=== PATIENT | male | born 1975 | race Caucasian/White ===

== ENCOUNTER 2021-06-03 10:56 | Emergency (ER) | payer MEDICAID, SELFPAY ==
[2021-06-03 10:57] VITALS: BP 138/79; PULSE 98; RESP 18; TEMP 36.6; O2SAT 99; BMI 34.0
--- NOTE | 2021-06-03 11:05 | EDS_ITS ---
HPI History of Present Illness Chief Complaint: Abscess Informant: patient Onset/Context/Timing Onset: Days Context: Gradual Onset Current Severity: Moderate Maximum Severity: Moderate Narrative Narrative: Patient presents secondary to abscess to the left forearm. He states he first noted a pimple-like lesion there 3 or 4 days ago. It is grown in size and become more painful. He has erythematous streaks up to the armpit. He has had subjective fever and chills. PFSH PFSH Medical History no medical history no medical history Home Medications cephalexin 500 mg PO Q6 #40 cap 06/03/21 [Rx Last Taken Unknown] hydrocodone-acetaminophen 1 tab PO Q6H PRN 3 Days #10 tab 06/03/21 [Rx Last Taken Unknown] sulfamethoxazole-trimethoprim [Bactrim DS] 1 tab PO BID #20 tab 06/03/21 [Rx Last Taken Unknown] Allergy/AdvReac Type Severity Reaction Status Date / Time No Known Allergies Allergy Verified 06/03/21 10:58 Surgical History no surgical history Social History (Updated 06/03/21 @ 11:[address] Rebecca Duncan MD) Smoking Status: Light Smoker (<10/day) [facility] ED Constitutional Constitutional ED: Reports chills, fever(s) and subjective Eyes Eyes: Denies change in vision ENT ENT ED: Denies sore throat Cardiovascular Cardiovascular: Denies chest pain Respiratory/Chest Respiratory/Chest: Denies cough or dyspnea Gastrointestinal Gastrointestinal: Denies abdominal pain, diarrhea, nausea or vomiting Genitourinary Genitourinary ED: Denies dysuria Musculoskeletal Musculoskeletal: Denies back pain Integumentary Reports abscess; Denies rash Neurologic Neurologic: Denies headache(s), paresthesias or weakness Allergic/Immunologic Allergic/Immunologic ED: Denies urticaria EXAM Physical Exam Const Vital Signs: 06/03/21 10:57 06/03/21 12:04 Temperature 98 F 97.7 F L Temperature Source Temporal Temporal Pulse Rate 98 85 Respiratory Rate 18 20 H Blood Pressure 138/79 H 123/90 H Blood Pressure Mean 98 101 Pulse Ox 99 98 Oxygen Delivery Method Room Air Room Air Positive well nourished and well developed General Appearance ED: well developed HEENT Reports moist mucous membranes Eyes PERRL and EOMs intact bilaterally Neck supple Chest Wall inspection of chest normal and palpation of chest normal Resp normal respiratory effort and clear to auscultation bilaterally Cardio regular rate and regular rhythm GI non-tender Palpation: soft Extremity Extremity Narrative: Cutaneous abscess to the left forearm measuring approximately 4 cm in total diameter. No fluctuance noted at this time. Scabbed lesion present as if it has recently drained. Lymphangitic streaking noted up to the axilla. Palpable, painful lymph nodes noted in the axilla. Neuro oriented x3 Sensorium / Orientation: alert Psych mental status grossly normal MDM MDM MDM Narrative Medical decision making narrative: Lab work and blood cultures ordered. Patient given a dose of IV vancomycin. Patient consented for I&D. Lab Data Labs: Laboratory Results - last 24 hr 06/03/21 06/03/21 11:15 11:15 WBC 9.0 RBC 5.09 Hgb 16.7 H Hct 48.7 MCV 95.7 H MCH 32.8 H MCHC 34.3 RDW Std Deviation 45.7 H RDW Coeff of Jj 12.8 Plt Count 135 L MPV 11.6 Immature Gran % (Auto) 0.300 Neut % (Auto) 72.5 H Lymph % (Auto) 19.4 [place] % (Auto) 6.7 Eos % (Auto) 0.7 Baso % (Auto) 0.4 Absolute Neuts (auto) 6.5 Absolute Lymphs (auto) 1.75 Nucleated RBC % 0 Sodium 140 Potassium 3.6 Chloride 109 H Carbon Dioxide 29.0 Anion Gap 2 L BUN 12 Creatinine 0.93 Estim Creat Clear Calc 109.78 Est GFR (MDRD) Af Amer 111 Est GFR (MDRD) Non-Af 92 BUN/Creatinine Ratio 12.9 Glucose 139 H Calcium 8.8 Treatment and Re-Evaluation Comments:: I&D performed. Please see procedure note. Patient will be given [place], Bactrim, Keflex. Patient to follow-up with PCP for wound check within the next 5 days. Return instructions provided. Procedures Other Procedures Procedure(s): I&D left forearm abscess: Let applied to the wound topically. This was followed by 3 cc 1% lidocaine locally. 1 cm incision with #11 blade made. Return of blood and pus. Wound cleansed and irrigated. Topical antibiotic ointment placed along with dressing. Patient tolerated procedure well. Discharge Plan Triage Chief Complaint: Abscess ED Provider: Rebecca Duncan Dx/Rx/DC Orders Clinical Impression: Cutaneous abscess Instructions: ED Abscess Incision And Drainage Prescriptions: New hydrocodone-acetaminophen 5-325 mg tablet 1 tab PO Q6H PRN (Reason: pain) 3 Days Qty: 10 RF: 0 sulfamethoxazole-trimethoprim [Bactrim DS] 800-160 mg tablet 1 tab PO BID Qty: 20 RF: 0 cephalexin 500 mg capsule 500 mg PO Q6 Qty: 40 RF: 0 Primary Care Provider: Care Physician,No Primary Referrals: Fabian Encarnacion MD [NON-STAFF] - Care Physician,No Primary [Primary Care Provider] - Disposition Disposition: Home, Self Care
[2021-06-03] MEDS: Morphine 4 MG/ML Syringe IV (11:16)
[2021-06-03] MEDS: Ondansetron 4 MG/2 ML Vial IV (11:17)
[2021-06-03] MEDS: Lidocaine 1% (20 ml mdv) 20 ML Vial INFILT (11:17)
[2021-06-03] MEDS: Lidocaine/Epi/Tetracaine 50 ML 1 APPLIC TOPICAL (11:17)
[2021-06-03 11:38] LABS: Absolute Lymphocyte Count 1.75 X10^3/uL (0.83-4.51); Absolute Neutrophil Count 6.5 X10^3/uL (2.0-7.7); Basophil# 0.04 X10^3/uL; Basophil% 0.4 % (0-1); Eosinophil# 0.06 X10^3/uL; Eosinophils% 0.7 % (0-5); Hematocrit 48.7 % (40-54); Hemoglobin 16.7 g/dL (13.0-16.5); Lymphocyte # 1.75 X10^3/ul (0.83-4.51); Lymphocyte % 19.4 % (19-41); Mean Corp Hgb Conc 34.3 g/dL (32-36); Mean Corpuscular Hgb 32.8 pg (27.0-32.0); Mean Corpuscular Volume 95.7 fL (80-94); Mean Platelet Vol. 11.6 fl (6.2-12.0); Monocyte% 6.7 % (0-10); NRBC Flagged by Analyzer 0 % (0-5); Neutrophil # 6.54 X10^3/uL (2.7-7.7); Neutrophil % 72.5 % (47-70); Platelet Count 135 K/mm3 (150-450); RBC Distribution Width CV 12.8 % (11.6-14.6); RBC Distribution Width SD 45.7 fl (35.1-43.9); Red Blood Count 5.09 M/mm3 (4.6-6.2)
[2021-06-03 11:45] LABS: Anion Gap 2 (5-15); BUN 12 mg/dL (7-18); BUN/Creat Ratio 12.9 RATIO (10-20); Calcium,Total 8.8 mg/dL (8.5-10.1); Chloride 109 mmol/L (98-107); Creatinine, Serum 0.93 mg/dL (0.70-1.30); EST Glomerular Filtration Rate 92 mL/min (>60); Est Glom Filt Rate - Afr Amer 111 mL/min (>60); Estimated Creatinine Clearance 109.78 ml/min; Glucose 139 mg/dL (74-106); Potassium 3.6 mmol/L (3.5-5.1); Sodium Level 140 mmol/L (136-145)
[2021-06-03 12:04] VITALS: BP 123/90; PULSE 85; RESP 20; TEMP 36.5; O2SAT 98
== END 2021-06-03 14:34 | disposition home or self-care (01) ==
PROVIDERS: Emergency Provider Emergency Medicine; Visit Provider Emergency Medicine
DX: L02.91 Cutaneous abscess, unspecified (principal); F17.200 Nicotine dependence, unspecified, uncomplicated; R68.83 Chills (without fever)
CPT/HCPCS: 10060; 36415; 80048; 85025; 87040; 99282; J7040; J7050; A4216; J2405

== ENCOUNTER 2021-07-05 18:22 | Emergency (ER) | payer MEDICAID, SELFPAY ==
[2021-07-05 18:23] VITALS: BP 154/102; PULSE 121; RESP 19; TEMP 36.1; O2SAT 97; BMI 34.2
--- NOTE | 2021-07-05 18:38 | RAD_ITS ---
EXAM: XR RIGHT ELBOW COMPLETE, 3 OR MORE VIEWS : 1975 CLINICAL INDICATION: PAIN -- IN ED WAITING ROOM TECHNIQUE: Frontal, lateral and oblique views of the right elbow. This report was created using [employer] report generation technology. COMPARISON: None. FINDINGS: BONES/JOINTS: Unremarkable. There is no displacement of the anterior or posterior fat pads. No acute fracture. No subluxation. Normal alignment. Preservation of the joint space. No destructive or sclerotic lesions. SOFT TISSUES: Unremarkable. No soft tissue swelling or gas. No radiopaque foreign body. RAD/Elbow min 3 Views IMPRESSION: Negative right elbow. at 1856 Reported and signed by: Jc Dsouza MD Electronically Signed: Jc Dsouza MD at 18:55 EDT ,
--- NOTE | 2021-07-05 20:21 | EX.ED.UPPERE ---
HPI History of Present Illness Chief Complaint: Upper Extremity Injury Narrative Narrative: 46-year-old male presenting with 3 days of right elbow pain. 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 He has repetitive motion using his arms and elbows. Patient states his right elbow has been hurting since then. Denies direct trauma. He describes it as pain in the medial and lateral epicondyle region. No numbness or tingling. Patient has taken ibuprofen at home without relief. Patient denies significant medical history. PFSH PFSH Home Medications cephalexin 500 mg PO Q6 #40 cap 06/03/21 [Rx Last Taken Unknown] hydrocodone-acetaminophen 1 tab PO Q6H PRN 3 Days #10 tab 06/03/21 [Rx Last Taken Unknown] sulfamethoxazole-trimethoprim [Bactrim DS] 1 tab PO BID #20 tab 06/03/21 [Rx Last Taken Unknown] prednisone 50 mg PO DAILY #5 tab 07/05/21 [Rx Last Taken Unknown] Allergy/AdvReac Type Severity Reaction Status Date / Time No Known Allergies Allergy Verified 07/05/21 18:24 Social History Smoking Status: Light Smoker (<10/day) [facility] ED Constitutional Constitutional ED: Denies chills or fever(s) Eyes Eyes: Denies blurry vision or diplopia ENT ENT ED: Denies rhinorrhea or sore throat Cardiovascular Cardiovascular: Denies chest pain or palpitations Respiratory/Chest Respiratory/Chest: Denies cough or dyspnea Gastrointestinal Gastrointestinal: Denies abdominal pain, nausea or vomiting Genitourinary Genitourinary ED: Denies dysuria or hematuria Musculoskeletal Musculoskeletal: Reports other Details: Right elbow and forearm pain Integumentary Denies Abrasions or rash Neurologic Neurologic: Denies headache(s) or weakness Psychiatric Psychiatric: Denies anxiety or depression EXAM Physical Exam Const Vital Signs: 07/05/21 18:23 Temperature 97 F L Temperature Source Temporal Pulse Rate 121 H Respiratory Rate 19 H Blood Pressure 154/102 H Blood Pressure Mean 119 Pulse Ox 97 Oxygen Delivery Method Room Air Positive well nourished General Appearance ED: NAD HEENT normocephalic and atraumatic Eyes PERRL and EOMs intact bilaterally Resp normal respiratory effort Cardio regular rate and regular rhythm Extremity Extremity Narrative: Tenderness to palpation over the right medial and lateral epicondyles. Range of motion is not limited in flexion, extension, pronation, supination. He does have pain with each of these. No olecranon pain. No swelling, rash, erythema. 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 X-ray on my interpretation of the right elbow shows no acute fracture or subluxation. There is no effusion. Radiologist does agree. I will start the patient on prednisone with the first dose given in ER. He will be given orthopedic follow-up. Patient stable for discharge at this time. Impression: 1. Right elbow tendinitis Radiography Diagnostic Testing: Clinical Impression(s) from Imaging Studies Elbow X-Ray 07/05/21 18:38 IMPRESSION: Negative right elbow. at 1856 Reported and signed by: Jc Dsouza MD Electronically Signed: Jc Dsouza MD at 18:55 EDT , Discharge Plan Triage Chief Complaint: Upper Extremity Injury ED Provider: Felton Gavin Dx/Rx/DC Orders Instructions: ED Tendonitis Prescriptions: New prednisone 50 mg tablet 50 mg PO DAILY Qty: 5 RF: 0 No Action hydrocodone-acetaminophen 5-325 mg tablet 1 tab PO Q6H PRN (Reason: pain) 3 Days Qty: 10 RF: 0 sulfamethoxazole-trimethoprim [Bactrim DS] 800-160 mg tablet 1 tab PO BID Qty: 20 RF: 0 cephalexin 500 mg capsule 500 mg PO Q6 Qty: 40 RF: 0 Primary Care Provider: Care Physician,No Primary Referrals: Jin Roman DO [STAFF PHYSICIAN] - As soon as possible Care Physician,No Primary [Primary Care Provider] - Disposition Disposition: Home, Self Care
[2021-07-05] MEDS: predniSONE 20 MG Tablet 60 MG PO (20:36)
== END 2021-07-05 20:49 | disposition home or self-care (01) ==
LOC: ED 20:20
PROVIDERS: Emergency Provider Student in an Organized Health Care Education/Training Program; Visit Provider Student in an Organized Health Care Education/Training Program
DX: M77.9 Enthesopathy, unspecified (principal); M25.521 Pain in right elbow; F17.200 Nicotine dependence, unspecified, uncomplicated
CPT/HCPCS: 73080; 99282

== ENCOUNTER 2024-03-13 02:50 | Emergency (ER) | payer MEDICAID, SELFPAY ==
[2024-03-13 02:52] VITALS: BP 164/90; PULSE 103; RESP 18; TEMP 36.8; O2SAT 98; BMI 25.4
--- NOTE | 2024-03-13 03:11 | EX.ED.DYSGE1 ---
HPI History of Present Illness Chief Complaint: Other, Pain/Inj Informant: patient Narrative Narrative: Patient is a 48-year-old male who states he does not have any past medical history although he does note he does not follow with a doctor. He reports that 3 days ago he was walking down a grassy hill when he slipped and fell landing on his left side. He denies striking his head or any loss of consciousness. He denies any history of bleeding disorder or blood thinner use. He states he was able to get back up and he did not think much of the fall but as time passed he noticed he was having some tightness and pain in the right side of his neck. Over the next few days the neck became tighter and now he is having difficulty turning it. He denies any radiation into the arm he denies any numbness tingling or weakness but with the worsening tightness of his neck and the increasing pain he presents for evaluation [facility] Medical History no medical history no medical history Home Medications ?Medication ?Instructions ?Recorded ?Last Taken ?Type oxycodone-acetaminophen 5 mg-325 1 tab PO Q6H PRN pain 3 days #12 03/13/24 Unknown Rx mg tablet (Percocet) tabs tizanidine 2 mg capsule (Zanaflex) 2 mg PO TID PRN muscle spasticity 03/13/24 Unknown Rx 5 days #15 caps Allergy/AdvReac Type Severity Reaction Status Date / Time No Known Allergies Allergy Verified 03/13/24 02:51 Social History Smoking Status: Light Smoker (<10/day) ROS [facility] ED Constitutional Constitutional ED: Denies chills or fever(s) Eyes Eyes: Denies blurry vision or change in vision ENT ENT ED: Denies sore throat Cardiovascular Cardiovascular: Reports other Details: Negative syncope ; Denies chest pain Respiratory/Chest Respiratory/Chest: Denies cough or dyspnea Gastrointestinal Gastrointestinal: Denies abdominal pain, diarrhea, nausea or vomiting Genitourinary Genitourinary ED: Denies dysuria or hematuria Musculoskeletal Musculoskeletal: Reports neck pain; Denies back pain Integumentary Denies rash Neurologic Neurologic: Denies headache(s), paresthesias or weakness Hematologic/Lymphatic Hematologic/Lymphatic: Denies easy bleeding or easy bruising EXAM Physical Exam Const Vital Signs: 03/13/24 02:52 Temperature 98.3 F Temperature Source Axillary Pulse Rate 103 H Respiratory Rate 18 Blood Pressure 164/90 H Blood Pressure Mean 114 Pulse Ox 98 Oxygen Delivery Method Room Air Positive well nourished and well developed General Appearance ED: well developed; Negative for pallor HEENT HEENT Narrative: Normocephalic atraumatic No signs of depressed or basilar skull fracture No signs of infection noted in the posterior pharynx Eyes PERRL and EOMs intact bilaterally General Eye ED: Negative for scleral icterus Neck Neck Narrative: No bony deformity or step-off of the cervical spine no midline tenderness to palpation There is right-sided paracervical tension and spasm noted. There is pain with palpation over top the right SCM muscle. Pain worsens with sidebending and rotation Chest Wall palpation of chest normal Resp normal respiratory effort and clear to auscultation bilaterally Cardio regular rate and regular rhythm Back/Spine Back/Spine Narrative: No bony deformity or step-off of the thoracic or lumbar spine no midline tenderness to palpation Extremity normal to inspection Neuro oriented x3, CN's II-XII intact bilaterally and no sensory deficits noted Sensorium / Orientation: alert Motor Exam: strength 5/5 throughout Psych mental status grossly normal Skin no rashes or lesions noted and no wounds General Skin Exam: Negative for jaundice or pallor MDM MDM MDM Narrative Medical decision making narrative: Patient presented to the ER hypertensive but otherwise with stable vitals. He reported gradual onset of right sided neck pain that was worse with palpation and motion. He did report symptoms came on slowly after a fall. There is concern for cervical compression fracture and/or spondylolisthesis. I discussed obtaining a neck CT or x-ray secondary to this. Patient states he has very low concern that there is and then broken in the neck and does not want any imaging. He is afebrile and does not have any meningeal signs and therefore my concern for acute meningitis is low and there is no need for laboratory studies or lumbar puncture. Posterior pharynx dam did not show signs of infection to suggest peritonsillar abscess or retropharyngeal abscess as a cause of his pain. Therefore at this time his symptoms are most likely related to cervical spasm from the fall caused him to be medicated as he does not want imaging and discharged home History & Record Review Discussion w/independent historian: Patient Discharge Plan Triage Chief Complaint: Other, Pain/Inj ED Provider: Jorge Luis Dia Dx/Rx/DC Orders Clinical Impression: Acute cervical myofascial strain, Cervical paraspinal muscle spasm, Hypertension Instructions: ED Muscle Spasm, ED Neck Sprain or Strain Prescriptions: New oxycodone-acetaminophen [Percocet] 5-325 mg tablet 1 tab PO Q6H PRN (Reason: pain) 3 Days Qty: 12 0RF tizanidine [Zanaflex] 2 mg capsule 2 mg PO TID PRN (Reason: muscle spasticity) 5 Days Qty: 15 0RF Primary Care Provider: Care Physician,No Primary Referrals: Butch Leblanc MD [Med Staff - Active Staff] - Care Physician,No Primary [Primary Care Provider] - Activity Restrictions/Additional Instructions: Please continue to stretch and heat your neck to reduce pain and speed healing and return to the ER should you have any further concerns Print Language: Slovak Disposition Disposition: Home, Self Care Discharge Date/Time: 03/13/24 03:34
[2024-03-13] MEDS: Orphenadrine 100 MG Tablet PO (03:28)
[2024-03-13] MEDS: oxyCODONE 5 MG Tablet 10 MG PO (03:28)
== END 2024-03-13 03:34 | disposition home or self-care (01) ==
LOC: ED 03:27
PROVIDERS: Emergency Provider Emergency Medicine; Visit Provider Emergency Medicine
DX: S16.1XXA Strain of muscle, fascia and tendon at neck level, initial encounter (principal); I10 Essential (primary) hypertension; M62.838 Other muscle spasm; W17.81XA Fall down embankment (hill), initial encounter; F17.200 Nicotine dependence, unspecified, uncomplicated
CPT/HCPCS: 99283

== ENCOUNTER 2024-03-16 20:26 | Emergency (ER) | payer MEDICAID, SELFPAY ==
[2024-03-16] VITALS (12 sets, daily range): BP systolic 91–135; BP diastolic 64–102; PULSE 154–187; RESP 12–33; TEMP 35.5–41.3; O2SAT 91–100; BMI 25.6
[2024-03-16] MEDS: Adenosine 6 MG/2 ML Syringe IV (20:37)
[2024-03-16] MEDS: Etomidate 20 MG/10 ML Vial 40 MG IV (20:41)
[2024-03-16] MEDS: Rocuronium Bromide 50 MG/5 ML Vial 20 MG IV (20:41)
--- NOTE | 2024-03-16 20:45 | ED.RN ---
Pt placed in soft restraints bilateral wrists d/t intubation.
--- NOTE | 2024-03-16 20:47 | RAD_ITS ---
EXAM: XR ABDOMEN, 1 VIEW CLINICAL INDICATION: NG Insertion TECHNIQUE: Frontal supine view of the abdomen/pelvis. COMPARISON: No relevant prior studies available. FINDINGS: LOWER THORAX: No acute pathology. GASTROINTESTINAL TRACT: Unremarkable. Non-obstructive. No bowel or stomach distention. ORGANS: Unremarkable as visualized. No organomegaly. No abnormal calcifications. BONES/JOINTS: No acute pathology. SOFT TISSUES: No acute pathology. TUBES, LINES AND DEVICES: Nasogastric tube is in place with the distal tip in the proximal stomach. RAD/Abdomen Single View (Portable) IMPRESSION: Nasogastric tube with the distal tip in the proximal stomach. Electronically Signed: Jc Dsouza MD at 22:17 EST ,
--- NOTE | 2024-03-16 20:47 | EKG12_ITS ---
Test Reason : UNRESPONSIVE Blood Pressure : */* mmHG Vent. Rate : 174 BPM Atrial Rate : * BPM P-R Int : * ms QRS Dur : 162 ms QT Int : 270 ms P-R-T Axes : * 72 76 degrees QTcB Int : 459 ms Critical Test Result: High HR , Arrhythmia Atrial tachycardia Non-specific intra-ventricular conduction block Abnormal ECG No previous ECGs available Confirmed by DAISY FRENCH, THOMPSON ([id number]), editor managing newspaper MARIA ESTHER WILKINS ([id number]) on 03/20/2024 9:58:17 AM Referred By: PATTI Confirmed By: THOMPSON VILLA MD
--- NOTE | 2024-03-16 20:48 | RAD_ITS ---
EXAM: XR CHEST, 1 VIEW CLINICAL INDICATION: Trauma TECHNIQUE: Frontal view of the chest. COMPARISON: No relevant prior studies available. FINDINGS: LUNGS AND PLEURAL SPACES: Unremarkable. No consolidation or edema. No pneumothorax. No effusion. HEART: Unremarkable. Cardiac silhouette not enlarged. MEDIASTINUM: Central airways and mediastinal contour are unremarkable. BONES/JOINTS: Unremarkable. No acute fracture. SOFT TISSUES: Unremarkable. TUBES, LINES AND DEVICES: Endotracheal tube is in place with the distal tip 2 cm above the odilia. Nasogastric tube has the distal tip below the diaphragm not visualized on this study. RAD/Chest 1 View (Portable) IMPRESSION: No acute pulmonary abnormality. Support structures in good position. Electronically Signed: Jc Dsouza MD at 22:14 EST ,
[2024-03-16] MEDS: 0.9% Normal Saline (1000mL) 1,000 ML 999 ML IV (20:52)
--- NOTE | 2024-03-16 20:52 | ED.RN ---
no old ekg
[2024-03-16] MEDS: fentaNYL drip 100 ML 2.5 MCG CONT INF (20:56)
[2024-03-16 21:00] LABS: Mucous, Urine 0 SEEN /hpf (<or=2+)
--- NOTE | 2024-03-16 21:00 | EX.ED.DYSGE1 ---
HPI History of Present Illness Chief Complaint: Unresponsive Informant: EMS Limited: coma Onset/Context/Timing Onset: Today Timing: Continuous Quality: Unresponsive Location: Generalized Narrative Narrative: Patient was found unresponsive tonight. EMS were called because the patient was unresponsive and nonverbal. EMS noted the patient to be tachycardic. Patient was not answering questions for EMS. Patient is nonverbal here in the emergency department. Apparently patient was seen here couple days ago after a fall. Patient was given a prescription for Percocet and a muscle relaxer at that time. Patient was not seen again until he was found unresponsive tonight. PFSH PFSH Home Medications ?Medication ?Instructions ?Recorded ?Last Taken ?Type oxycodone-acetaminophen 5 mg-325 1 tab PO Q6H PRN pain 3 days #12 03/13/24 Unknown Rx mg tablet (Percocet) tabs tizanidine 2 mg capsule (Zanaflex) 2 mg PO TID PRN muscle spasticity 03/13/24 Unknown Rx 5 days #15 caps Allergy/AdvReac Type Severity Reaction Status Date / Time No Known Allergies Allergy Verified 03/16/24 20:27 Social History Smoking Status: Light Smoker (<10/day) ROS ROS ED Review of Systems ROS Unobtainable: due to endotracheal tube, due to mental condition and due to mental status EXAM Physical Exam Const Vital Signs: 03/16/24 20:27 03/16/24 20:31 03/16/24 20:57 Temperature 96 F L Temperature Source Temporal Pulse Rate 178 H 154 H Respiratory Rate 27 H 25 H Respiratory Effort Normal Non-Labored Blood Pressure 120/95 H 135/102 H Blood Pressure Mean 103 113 Blood Pressure Source Blood Pressure Position Blood Pressure Location Pulse Ox 99 100 Oxygen Delivery Method Non-Rebreather Mechanical Ventilator Oxygen Flow Rate (L/min) 15 Fraction of Inspired Oxygen (FIO2) 03/16/24 21:27 03/16/24 21:30 03/16/24 21:43 Temperature Temperature Source Pulse Rate 161 H 163 H 179 H Respiratory Rate 25 H 25 H 33 H Respiratory Effort Blood Pressure 118/97 H 118/97 H Blood Pressure Mean 104 104 Blood Pressure Source Blood Pressure Position Blood Pressure Location Pulse Ox 98 98 97 Oxygen Delivery Method Mechanical Ventilator Room Air Oxygen Flow Rate (L/min) Fraction of Inspired Oxygen (FIO2) 40 03/16/24 22:00 03/16/24 22:30 03/16/24 23:00 Temperature 105.7 F H Temperature Source Core Pulse Rate 173 H 177 H 187 H Respiratory Rate 25 H 30 H 30 H Respiratory Effort Blood Pressure 108/85 H 106/85 H 96/68 Blood Pressure Mean 92 92 77 Blood Pressure Source Blood Pressure Position Blood Pressure Location Pulse Ox 92 96 93 Oxygen Delivery Method Mechanical Ventilator Mechanical Ventilator Mechanical Ventilator Oxygen Flow Rate (L/min) Fraction of Inspired Oxygen (FIO2) 03/16/24 23:04 03/16/24 23:11 03/16/24 23:26 Temperature 105.7 F H 106.3 F H 106.4 F H Temperature Source Core Core Pulse Rate 185 H 184 H 183 H Respiratory Rate 30 H 33 H 33 H Respiratory Effort Blood Pressure 96/68 93/64 92/77 Blood Pressure Mean 77 73 82 Blood Pressure Source Monitor Monitor Blood Pressure Position Semi-Fowlers Supine Blood Pressure Location Left Arm Left Arm Pulse Ox 95 91 91 Oxygen Delivery Method Mechanical Ventilator Mechanical Ventilator Oxygen Flow Rate (L/min) Fraction of Inspired Oxygen (FIO2) 03/16/24 23:30 Temperature Temperature Source Pulse Rate 184 H Respiratory Rate 30 H Respiratory Effort Blood Pressure 91/72 Blood Pressure Mean 78 Blood Pressure Source Blood Pressure Position Blood Pressure Location Pulse Ox 93 Oxygen Delivery Method Mechanical Ventilator Oxygen Flow Rate (L/min) Fraction of Inspired Oxygen (FIO2) HEENT HEENT Narrative: There is some proptosis of the right eye. Conjunctiva was injected on the right. Resp normal respiratory effort and clear to auscultation bilaterally Cardio regular rhythm Rate: tachycardic GI non-distended Palpation: soft Extremity General Extremety ED: Negative for edema or tenderness General Extremity: Negative for edema Neuro Neuro Narrative: Patient is unresponsive and nonverbal. Patient was moving both arms to painful stimuli. MDM MDM MDM Narrative Medical decision making narrative: Differential diagnosis includes intracranial bleeding, head trauma, cervical spine trauma, hypothermia, sepsis, dehydration, supraventricular tachycardia, opiate overdose, and other medication overdose. CT scan of the brain will be obtained to assess for intracranial bleeding. CT scan of cervical spine will be obtained to assess for cervical spine fracture. EKG will be obtained to assess for cardiac dysrhythmia and cardiac ischemia. Chest x-ray will be obtained to assess for pneumonia and pneumothorax. CBC will be obtained to assess for leukocytosis and anemia. Basic metabolic profile will be obtained to assess for electrolyte abnormality and renal function. Hepatic profile will be obtained to assess for hepatic function. PT with INR PTT will be obtained to assess for coagulopathy. Serum alcohol level will be obtained to assess for alcohol intoxication. Urine tox screen will be obtained to assess for substance abuse. Urinalysis will be obtained to assess for urinary tract infection and hematuria. Acute abdominal x-ray will be obtained to assess for NG tube placement. Lab Data Lab results narrative: CBC was reviewed. White blood cell count was 35.5. Hemoglobin was 17.5. Platelets were 350. PT with INR and PTT were reviewed. Pro time was 16.7 and INR is 1.4. PTT was normal at 31.2. Urinalysis was reviewed. Occult blood was 250 there were 10-25 red blood cells. There are 0-5 white blood cells. Serum alcohol level was reviewed and was less than 3.0. Labs: Laboratory Results - last 24 hr 03/16/24 03/16/24 03/16/24 20:33 20:35 20:53 WBC 35.5 H* RBC 5.59 Hgb 17.5 H Hct 50.6 MCV 90.5 MCH 31.3 MCHC 34.6 RDW Std Deviation 40.0 RDW Coeff of Jj 12.1 Plt Count 350 MPV 10.8 Immature Gran % (Auto) 2.100 H Neut % (Auto) 92.6 H Lymph % (Auto) 1.3 L [place] % (Auto) 3.7 Eos % (Auto) 0.2 Baso % (Auto) 0.1 Absolute Neuts (auto) 32.9 H Absolute Lymphs (auto) 0.45 L Other Cells % 35.5 Nucleated RBC % 0 Differential Comment SEE COMMENTS Diff Path Review May foll Platelet Estimate ADEQUATE Anisocytosis RARE Macrocytosis RARE PT 16.7 H INR 1.4 APTT 31.2 Sodium 135 L Potassium 3.2 L Chloride 97 L Carbon Dioxide 23.0 Anion Gap 15 BUN 29 H Creatinine 1.42 H Estim Creat Clear Calc 70.33 Est GFR (MDRD) Af Amer 68 Est GFR (MDRD) Non-Af 56 L BUN/Creatinine Ratio 20.4 H Glucose 471 H* Lactic Acid 5.2 H* Calcium 10.1 Total Bilirubin 0.70 Direct Bilirubin 0.35 H AST 24 ALT 18 Alkaline Phosphatase 165 H Total Protein 7.8 Albumin 2.4 L Globulin 5.4 H Urine Color Yellow Urine Clarity Clear Urine pH 6.0 Ur Specific [place] 1.015 Urine Protein 100 H Urine Glucose (UA) 1000 H Urine Ketones 50 H Urine Occult Blood 250 H Urine Nitrite Negative Urine Bilirubin Negative Urine Urobilinogen Normal Ur Leukocyte Esterase Negative Urine RBC 10-25 SEEN Urine WBC 0-5 SEEN Ur Squamous Epith Cells 0-5 SEEN Urine Bacteria 1+ Urine Mucus 0 SEEN Ethyl Alcohol < 3.0 Acetone Level Blood Type Antibody Screen Crossmatch 03/16/24 03/16/24 21:25 22:30 WBC RBC Hgb Hct MCV MCH MCHC RDW Std Deviation RDW Coeff of Jj Plt Count MPV Immature Gran % (Auto) Neut % (Auto) Lymph % (Auto) [place] % (Auto) Eos % (Auto) Baso % (Auto) Absolute Neuts (auto) Absolute Lymphs (auto) Other Cells % Nucleated RBC % Differential Comment Diff Path Review Platelet Estimate Anisocytosis Macrocytosis PT INR APTT Sodium Potassium Chloride Carbon Dioxide Anion Gap BUN Creatinine Estim Creat Clear Calc Est GFR (MDRD) Af Amer Est GFR (MDRD) Non-Af BUN/Creatinine Ratio Glucose Lactic Acid Calcium Total Bilirubin Direct Bilirubin AST ALT Alkaline Phosphatase Total Protein Albumin Globulin Urine Color Urine Clarity Urine pH Ur Specific [place] Urine Protein Urine Glucose (UA) Urine Ketones Urine Occult Blood Urine Nitrite Urine Bilirubin Urine Urobilinogen Ur Leukocyte Esterase Urine RBC Urine WBC Ur Squamous Epith Cells Urine Bacteria Urine Mucus Ethyl Alcohol Acetone Level NEGATIVE Blood Type A POSITIVE Antibody Screen NEGATIVE Crossmatch See Detail ABG Data Attestation: I personally reviewed and interpreted this ABG as follows: Interpretation: Arterial blood gas was reviewed. pH was 7.31, pCO2 was 38.5, pO2 was 479, bicarb was 19.3, and oxygen saturation was 100%. ABG results: ABG 03/16/24 21:25 Specimen Type ART Sample Site L Radial pH 7.31 L Bicarbonate Actual 19.3 L Total CO2 21 Base Excess -7 L O2 Saturation 100 H O2 % 50.0 ABG pCO2 38.5 ABG pO2 479 H* Luca Test Positive Respiration Rate 12 O2 Delivery Device Adult Vent Vent Mode AC Tidal Volume 450.0 POC PEEP 5 Crit Call To/Read Back Yes Blood Gas Notified Whom dr. mann Blood Gas Notified Time 21:27:33 Radiography Chest X-Ray - ED: 1 View, Read by ED Physician and Read by Radiologist Diagnostic Testing: Clinical Impression(s) from Imaging Studies KUB X-Ray 03/16/24 20:47 IMPRESSION: Nasogastric tube with the distal tip in the proximal stomach. Electronically Signed: Jc Dsouza MD at 22:17 EST , Chest X-Ray 03/16/24 20:48 IMPRESSION: No acute pulmonary abnormality. Support structures in good position. Electronically Signed: Jc Dsouza MD at 22:14 EST , Brain CT 03/16/24 21:03 IMPRESSION: Negative head/brain CT without intravenous contrast. Electronically Signed: Jc Dsouza MD at 22:09 EST , Cervical Spine CT 03/16/24 21:03 IMPRESSION: No evidence of acute cervical spinal fracture or spondylolisthesis. Electronically Signed: Jc Dsouza MD at 22:08 EST , Chest/Abdomen/Pelvis CTA 03/16/24 21:43 IMPRESSION: No acute findings in the visualized arteries of the chest, abdomen or pelvis. Electronically Signed: Jc Dsouza MD at 23:18 EST , Portable chest x-ray was obtained. There is 1 view. On my independent interpretation, there is no acute cardiopulmonary process. Endotracheal tube was 1 cm from the odilia. There are no rib fractures. There is no pneumothorax. Abdominal KUB x-ray was obtained. There is 1 view. On my independent interpretation, the NG tube goes into the stomach. There is no acute process noted. CT scan of the brain was obtained. There is no acute intracranial bleeding. There is no fracture noted. This was interpreted by the radiologist was also independently reviewed by myself. CT scan of the cervical spine was obtained. There is no evidence of cervical spine fracture. There is no soft tissue swelling noted. This was interpreted by the radiologist and was also independently reviewed by myself. CTA of the chest, abdomen, and pelvis was obtained. There are no acute findings noted. There is no free fluid or free air. This was interpreted by the radiologist and was also independently reviewed by myself. EKG Initial EKG: Attestation: I personally reviewed and interpreted this EKG as follows: Interpretation: Sinus Tachycardia (174) and Non-Specific ST Changes Comments: EKG was obtained. On my independent interpretation it shows sinus tachycardia with a rate of 174. CT interval was normal at 120 milliseconds. QRS interval slightly prolonged at 162 ms. QTc interval was 459 ms. [place] was normal. There is nonspecific conduction delay. There are nonspecific ST-T wave changes. Prior EKG tracings: not available for review Prior: No Prior Additional Tests and Interventions Additional Tests or Interventions: Due to the large amount of blood coming from the NG tube, CTA of the chest, abdomen, and pelvis was obtained to assess for internal bleeding. Treatment and Re-Evaluation :: Patient was given a dose of adenosine here. There is no change with that. Heart rate did slow somewhat into the 150s but it did appear to be a sinus tachycardia. Patient was given etomidate and rocuronium. Patient was intubated with a 7.5 ET tube to 25 cm at the lip. There is good color change noted on capnography. There are equal breath sounds bilaterally. Due to the patient's tachycardia, borderline low blood pressure, and active bleeding from the NG tube, patient was given 1 unit of trauma blood. Patient was typed and crossmatched for 2 more units. Due to the retrobulbar hematoma, a lateral canthotomy was performed. The right periorbital area was cleaned and anesthetized with 1% lidocaine with epinephrine. Straight hemostats were used to clamp the lateral canthus. Iris scissors were used to cut the lateral canthus. The superior and inferior ligaments were then cut with iris scissors. There is some relief of the hematoma. Intraocular pressure on the right was 39. Case was discussed with emergency department physician at [facility]. Patient was accepted to the emergency department there is a trauma. [employer] will be contacted for transport. [facility] was unable to transport the patient by helicopter due to weather. Ground transportation will be arranged. Patient was noted to have a temperature of 106.4 from the temp Bills catheter. Patient was given rectal Tylenol. Patient remained tachycardic and tachypneic. [facility] transfer team was here and will transfer the patient to [facility]. Procedures Intubations Intubation Method: orotracheal Intubation Verification: Positive color change and Bilateral breath sounds confirmed Intubation Complications: no complications Other Procedures Procedure(s): Lateral canthotomy was performed. The right periorbital area was cleaned and anesthetized with 1% lidocaine with epinephrine. Hemostats were used to clamp the lateral canthus. Iris scissors were used to cut the lateral canthus. The superior and inferior ligaments were then cut using iris scissors. The right eye was more mobile after the procedure. Critical Care Time Critical Care Time: Yes Critical care time (excluding procedures): 30-74 minutes (54), Including time spent:, Discussing w/Patient &/or Family/Provider Relations Consultant, Discussing w/Consultants, Arranging Admission or Transfer and Performing Direct Patient Care at Bedside Discharge Plan Triage Chief Complaint: Unresponsive ED Provider: Mitch Chris Dx/Rx/DC Orders Clinical Impression: Unresponsive, Gastrointestinal bleeding, Retrobulbar hematoma, Acute febrile illness, Acute lactic acidosis, Hyperglycemia Prescriptions: No Action oxycodone-acetaminophen [Percocet] 5-325 mg tablet 1 tab PO Q6H PRN (Reason: pain) 3 Days Qty: 12 0RF tizanidine [Zanaflex] 2 mg capsule 2 mg PO TID PRN (Reason: muscle spasticity) 5 Days Qty: 15 0RF Primary Care Provider: Care Physician,No Primary Referrals: Care Physician,No Primary [Primary Care Provider] - Print Language: [place]serratian Disposition Disposition: Acute Care Hospital Discharge Location: [facility]
--- NOTE | 2024-03-16 21:03 | CT_ITS ---
EXAM: CT CERVICAL SPINE WITHOUT INTRAVENOUS CONTRAST CLINICAL INDICATION: Injury/Pain TECHNIQUE: Helically acquired images were obtained of the cervical spine without intravenous contrast. 2D reformatted images were reviewed. This CT exam was performed using one or more of the following dose reduction techniques: automated exposure control, adjustment of the mA and/or kV according to patient size, and/or use of iterative reconstruction technique. COMPARISON: No relevant prior studies available. FINDINGS: VERTEBRAE: Unremarkable. No fracture. No traumatic subluxation. No discrete lytic or blastic abnormality. Normal alignment. Normal craniocervical junction and cervicothoracic junction. DISCS/SPINAL CANAL/NEURAL FORAMINA: Unremarkable. Disc heights are preserved. No critical stenosis. SOFT TISSUES: Unremarkable. No prevertebral soft tissue swelling. LYMPH NODES: Unremarkable. No cervical adenopathy. LUNG APICES: Unremarkable as visualized. Clear. CT/Spine Cervical without Contras IMPRESSION: No evidence of acute cervical spinal fracture or spondylolisthesis. Electronically Signed: Jc Dsouza MD at 22:08 EST ,
--- NOTE | 2024-03-16 21:03 | CT_ITS ---
EXAM: CT HEAD WITHOUT INTRAVENOUS CONTRAST CLINICAL INDICATION: Trauma TECHNIQUE: Multiple axial images were obtained of the head without intravenous contrast. This CT exam was performed using one or more of the following dose reduction techniques: automated exposure control, adjustment of the mA and/or kV according to patient size, and/or use of iterative reconstruction technique. COMPARISON: No relevant prior studies available. FINDINGS: BRAIN AND EXTRA-AXIAL SPACES: Unremarkable. No intra- or extra-axial hemorrhage. No evidence of acute infarct. No intracranial mass or mass effect. There is preservation of the bruce/white matter interface. Posterior fossa structures are unremarkable. Ventricles are appropriate for age. No hydrocephalus. Basal cisterns are patent. BONES/JOINTS: Unremarkable. No discrete lytic or blastic abnormalities. SINUSES: Unremarkable as visualized. Clear. MASTOID AIR CELLS: Unremarkable. Clear. ORBITS: Visualized globes, extraocular muscles, optic nerves and retrobulbar fat appear unremarkable. CT/Brain/Head without Contrast IMPRESSION: Negative head/brain CT without intravenous contrast. Electronically Signed: Jc Dsouza MD at 22:09 EST ,
[2024-03-16 21:06] LABS: Absolute Lymphocyte Count 0.45 X10^3/uL (0.83-4.51); Absolute Neutrophil Count 32.9 X10^3/uL (2.0-7.7); Basophil# 0.05 X10^3/uL; Basophil% 0.1 % (0-1); Eosinophil# 0.07 X10^3/uL; Eosinophils% 0.2 % (0-5); Hematocrit 50.6 % (40-54); Hemoglobin 17.5 g/dL (13.0-16.5); Lymphocyte # 0.45 X10^3/ul (0.83-4.51); Lymphocyte % 1.3 % (19-41); Mean Corp Hgb Conc 34.6 g/dL (32-36); Mean Corpuscular Hgb 31.3 pg (27.0-32.0); Mean Corpuscular Volume 90.5 fL (80-94); Mean Platelet Vol. 10.8 fl (6.2-12.0); Monocyte# 1.31 X10^3/uL; Monocyte% 3.7 % (0-10); NRBC Flagged by Analyzer 0 % (0-5); Neutrophil # 32.88 X10^3/uL (2.7-7.7); Neutrophil % 92.6 % (47-70); POSITIVE COUNT YES; POSITIVE DIFFERENTIAL YES; POSITIVE MORPHOLOGY YES; Platelet Count 350 K/mm3 (150-450); RBC Distribution Width CV 12.1 % (11.6-14.6); Red Blood Count 5.59 M/mm3 (4.6-6.2)
[2024-03-16 21:21] LABS: International Normalized Ratio 1.4; Prothrombin Time (Protime)PT. 16.7 SECONDS (11.7-14.9)
[2024-03-16 21:22] LABS: Partial Thromboplast Time 31.2 Seconds (24.1-36.2)
[2024-03-16 21:23] LABS: Color, Urine Yellow (Yellow); Glucose, Dipstick 1000 mg/dl (Normal); Ketone-Dipstick 50 mg/dl (Negative); Leukocyte Esterase-Dipstick Negative /ul (Negative); Nitrite-Dipstick Negative (Negative); Occult Blood-Urine 250 /ul (Negative); Protein-Dipstick 100 mg/dl (Negative); Specific Gravity, Urine 1.015 (1.002-1.030); Urine Bilirubin Dipstick Negative (Negative); Urine Clarity Clear (Clear); Urine Urobilinogen Normal (Normal)
[2024-03-16 21:30] LABS: Allen Test Positive; Base Excess -7 mmol/L (-2 to +2); Bicarbonate 19.3 mmol/L (22-26); Blood Gas Specimen Type ART; Mode AC; O2 Delivery Device Adult Vent; PEEP 5; PO2 479 mmHG (75-100); RR 12; SITE L Radial; SO2 100 % (95-99); Total Carbon Dioxide 21 mmol/L; pCO2 38.5 mmHg (35-45); pH 7.31 (7.35-7.45)
[2024-03-16] MEDS: Lidocaine 1% /Epi 1:100 (20ml) 20 ML Vial 10 ML INFILT (21:31)
[2024-03-16] MEDS: Midazolam 50 MG in 0.9% Normal Saline (100mL Bag) 90 ML CONT INF (21:31)
[2024-03-16 21:37] LABS: Bacteria 1+ /hpf (None Seen); Red Blood Cells-Urine 10-25 SEEN /hpf (0-5); Squamous Epithelial Cells - UA 0-5 SEEN /hpf (0-5); White Blood Cells 0-5 SEEN /hpf (0-5)
[2024-03-16 21:37] LABS: Alcohol, Blood (Medical)-Serum < 3.0 mg/dL
[2024-03-16 21:40] LABS: White Blood Count 35.5 K/mm3 (4.4-11.0)
--- NOTE | 2024-03-16 21:43 | CT_ITS ---
EXAM: CT ANGIOGRAPHY CHEST, ABDOMEN AND PELVIS WITH INTRAVENOUS CONTRAST CLINICAL INDICATION: Gastrointestinal bleeding TECHNIQUE: Helically acquired angiography images were obtained of the chest, abdomen and pelvis with intravenous contrast. This CT exam was performed using one or more of the following dose reduction techniques: automated exposure control, adjustment of the mA and/or kV according to patient size, and/or use of iterative reconstruction technique. MIP reconstructed images were created and reviewed. CONTRAST: IV 100mL [id number] COMPARISON: No relevant prior studies available. FINDINGS: VASCULATURE: AORTA: Aorta is normal caliber with no evidence of aneurysm or dissection. All branches are patent. PULMONARY ARTERIES: Unremarkable. Normal in caliber. No obvious central pulmonary embolism although this study was not performed with the pulmonary embolism protocol. GREAT VESSELS OF AORTIC ARCH: Unremarkable. Normal in caliber. No dissection. CELIAC TRUNK AND MESENTERIC ARTERIES: No acute findings. No occlusion or significant stenosis. No dissection. RENAL ARTERIES: No acute findings. No occlusion or significant stenosis. No dissection. ILIAC ARTERIES: No acute findings. No occlusion or significant stenosis. No dissection. CHEST: LUNGS AND PLEURAL SPACES: Unremarkable. No mass. No consolidation or edema. No pleural effusion or thickening. No pneumothorax. HEART: Unremarkable. Heart size is normal. No pericardial effusion. MEDIASTINUM: Unremarkable. No mediastinal or hilar adenopathy. Esophagus is unremarkable. No hiatal hernia. THYROID: Unremarkable. No thyroid lesions. ABDOMEN: LIVER: Unremarkable. Homogeneous. No focal mass. GALLBLADDER AND BILE DUCTS: Unremarkable. No calcified gallstones. No gallbladder distention or wall edema. No intra- or extrahepatic biliary ductal dilation. PANCREAS: Unremarkable. No focal cystic or solid mass. SPLEEN: Unremarkable. Normal size without focal cystic or solid mass. ADRENALS: Unremarkable. No nodules. KIDNEYS AND URETERS: Unremarkable. Normal renal size and position. No hydronephrosis. STOMACH AND BOWEL: There is no evidence of active GI bleeding. No stomach or bowel distention. No focal inflammatory change. PELVIS: APPENDIX: No evidence of acute appendicitis. BLADDER: There is a Bills catheter in bladder. REPRODUCTIVE: Unremarkable as visualized. No mass. CHEST, ABDOMEN and PELVIS: INTRAPERITONEAL SPACE: Unremarkable. No ascites or other fluid collection. No free air. BONES/JOINTS: Unremarkable. No suspicious lytic or blastic abnormality. SOFT TISSUES: Unremarkable. No discrete abdominal or pelvic wall hernia. LYMPH NODES: Unremarkable. No enlarged lymph nodes. TUBES, LINES AND DEVICES: Endotracheal tube is in place with the distal tip above the odilia. Nasogastric tube is in place with the distal tip in the stomach. CT/CTA Chst, Abd, Pel W and/or WO IMPRESSION: No acute findings in the visualized arteries of the chest, abdomen or pelvis. Electronically Signed: Jc Dsouza MD at 23:18 EST ,
[2024-03-16 21:44] LABS: Anisocytosis RARE; Differential Comment SEE COMMENTS; Macrocytosis RARE; Other WBC Type 35.5 %; Platelet Estimate ADEQUATE (ADEQ)
--- NOTE | 2024-03-16 21:55 | ED.RN ---
1 unit of trauma blood ordered and hung to the pt's right hand.
[2024-03-16 22:10] LABS: AST(SGOT) 24 U/L (15-37); Alanine Aminotransfer ALT/SGPT 18 U/L (16-61); Albumin, Serum 2.4 g/dL (3.2-5.0); Alkaline Phosphatase 165 U/L (45-117); Anion Gap 15 (5-15); BUN 29 mg/dL (7-18); BUN/Creat Ratio 20.4 RATIO (10-20); Bilirubin, Direct 0.35 mg/dL (0.00-0.30); Calcium,Total 10.1 mg/dL (8.5-10.1); Chloride 97 mmol/L (98-107); Creatinine, Serum 1.42 mg/dL (0.70-1.30); EST Glomerular Filtration Rate 56 mL/min (>60); Est Glom Filt Rate - Afr Amer 68 mL/min (>60); Estimated Creatinine Clearance 70.33 ml/min; Globulin 5.4 g/dL (2.2-4.2); Glucose 471 mg/dL (74-106); Potassium 3.2 mmol/L (3.5-5.1); Protein, Total 7.8 g/dL (6.4-8.2); Sodium Level 135 mmol/L (136-145)
--- NOTE | 2024-03-16 22:18 | ED.RN ---
Addendum entered by Liban Nova 03/16/24 22:50: 1 unit of trauma blood infusion completed at 2240 Original Note: order for 1 unit trauma blood, given
--- NOTE | 2024-03-16 22:38 | ED.RN ---
[facility] CALLED @ 2222 TO GIVE US ACCEPTING INFORMATION. PT ACCEPTED AT [facility] ED TO ED, PROVIDING THEIR OWN TRANSPORT TEAM. THE HELICOPTER CREW TURNED DOWN THE FLIGHT DUE TO WEATHER CONDITIONS, BUT THE FLIGHT TEAM WILL BE COMING WITH GROUND TRANSPORT. ETA IS 2320. TRANSFER CENTER STATED TRANSPORT CREW WOULD HAVE BLOOD ON BOARD IF NEEDED.
[2024-03-16 22:46] LABS: Lactic Acid 5.2 mmol/L (0.4-1.9)
[2024-03-16] MEDS: Acetaminophen 650 MG Suppository RC (23:07)
[2024-03-16] MEDS: 0.9% Normal Saline (1000mL) 1,000 ML 1000 ML IV (23:22)
--- NOTE | 2024-03-16 23:33 | ED.RN ---
[facility] at bedside, transferring care at this time.
--- NOTE | 2024-03-16 23:58 | ED.RN ---
attempted to call Brother, phone number listed in chart does not work.
[2024-03-17 02:26] LABS: Reflex Lactate? Y
[2024-03-17 15:18] LABS: Pathologist Review Reviewed
== END 2024-03-17 | disposition short-term general hospital (02) ==
PROVIDERS: Emergency Provider Emergency Medicine; Visit Provider Emergency Medicine
DX: R40.4 Transient alteration of awareness (principal); K92.2 Gastrointestinal hemorrhage, unspecified; R50.9 Fever, unspecified; R73.9 Hyperglycemia, unspecified; S36.892A Contusion of other intra-abdominal organs, initial encounter; E87.20 Acidosis, unspecified; F17.200 Nicotine dependence, unspecified, uncomplicated
CPT/HCPCS: G0463; 31500; 31720; 36600; 51702; 70450; 71045; 71275; 72125; 74018; 74174; 80048; 80076; 81001; 82009; 82077; 82803; 83605; 85025; 85610; 85730; 86644; 86850; 86900; 86901; 86920; 87070; 87077; 87186; 87205; 93005; 94002; 96360; 96361; 99252; 99285; P9016; Q9967; A4216; J0153